=== PATIENT | female | born 1995 | race African-American/Black ===

== ENCOUNTER 2016-11-13 20:30 | Emergency (ER) | payer OTHER ==
[2016-11-13 20:38] VITALS: BP 125/60; PULSE 79; BMI 25.2
[2016-11-13 21:05] LABS: BASOPHIL 0.9 % (0-2.0); MCH 25.1 pg (25.7-33.7); MCHC 32.4 g/dl (32.0-36.0); MEAN CELL VOLUME 77.5 fl (80-96); NEUTROPHILS 63.6 % (42.8-82.8); RDW 15.5 % (11.6-15.6); WHITE BLOOD COUNT 7.8 K/mm3 (4.0-10.0)
--- NOTE | 2016-11-13 21:34 | PDOC ---
History of Present Illness - History of Present Illness Initial Comments: 11/13/16 23:05 The patient is a 21 year old female, 8 weeks , with no significant past medical history, who presents to the emergency department with vaginal bleeding and abdominal cramping today. The patient states she was feeling fine yesterday , until she woke up with sharp, intermittent, suprapubic cramping with vaginal bleeding this morning. She denies chest pain, shortness of breath, headache and dizziness. She denies fever, chills, nausea, vomit, diarrhea and constipation. She denies dysuria, frequency, urgency and hematuria. Allergies: NKDA Social history: denies toxic habits PCP: Dr. Fu <Gabrielle Duong - Last Filed: 11/13/16 23:05> <Shell Cervantes - Last Filed: 11/14/16 00:04> - General Chief Complaint: Vaginal Bleeding Stated Complaint: 8WKS/VAGINAL BLEEDING Time Seen by Provider: 11/13/16 20:36 Past History <Gabrielle Duong - Last Filed: 11/13/16 23:05> - Past Medical History Suicide Attempt (Hx): No - Psycho/Social/Smoking Cessation Hx Anxiety: No Suicidal Ideation: No Smoking History: Never smoked Have you smoked in the past 12 months: Yes Information on smoking cessation initiated: No Hx Alcohol Use: No Drug/Substance Use Hx: No Substance Use Type: None <Shell Cervantes - Last Filed: 11/14/16 00:04> - Past Medical History Allergies/Adverse Reactions: Allergies Allergy/AdvReac Type Severity Reaction Status Date / Time No Known Allergies Allergy Verified 11/13/16 20:36 Home Medications: Ambulatory Orders Naproxen [Naprosyn -] 500 mg PO BID #14 tablet 05/26/16 Review of Systems - Review of Systems Able to Perform ROS?: Yes Comments:: 11/13/16 23:08 CONSTITUTIONAL: Absent: fever, chills, diaphoresis, generalized weakness, malaise, loss of appetite HEENT: Absent: rhinorrhea, nasal congestion, throat pain, throat swelling, difficulty swallowing, mouth swelling, ear pain, eye pain, visual Changes CARDIOVASCULAR: Absent: chest pain, syncope, palpitations, irregular heart rate, lightheadedness , peripheral edema RESPIRATORY: Absent: cough, shortness of breath, dyspnea with exertion, orthopnea, wheezing, stridor, hemoptysis GASTROINTESTINAL: (+) abdominal cramping. Absent:abdominal distension, nausea, vomiting, diarrhea , constipation, melena, hematochezia GENITOURINARY: (+) vaginal bleeding in . Absent: dysuria, frequency, urgency, hesitancy, hematuria, flank pain, genital pain MUSCULOSKELETAL: Absent: myalgia, arthralgia, joint swelling SKIN: Absent: rash, itching, pallor HEMATOLOGIC/IMMUNOLOGIC: Absent: easy bleeding, easy bruising, lymphadenopathy, frequent infections ENDOCRINE: Absent: unexplained weight gain, unexplained weight loss, heat intolerance, cold intolerance NEUROLOGIC: Absent: headache, focal weakness or paresthesias, dizziness, unsteady gait, seizure, mental status changes, bladder or bowel incontinence PSYCHIATRIC: Absent: anxiety, depression, suicidal or homicidal ideation, hallucinations. <Gabrielle Duong - Last Filed: 11/13/16 23:05> *Physical Exam - Vital Signs Last Vital Signs Temp Pulse Resp BP Pulse Ox 79 18 125/60 98 11/13/16 20:36 11/13/16 20:36 11/13/16 20:36 11/13/16 20:36 - Physical Exam Comments: 11/13/16 23:09 GENERAL: Well developed, well nourished. Awake and alert. No acute distress. HEENT: Normocephalic, atraumatic. PERRLA, EOMI. No conjunctival pallor. Sclera are non- icteric. Moist mucous membranes. Oropharynx is clear. NECK: Supple. Full ROM. No JVD. Carotid pulses 2+ and symmetric, without bruits. No thyromegaly. No lymphadenopathy. CARDIOVASCULAR: Regular rate and rhythm. No murmurs, rubs, or gallops. Distal pulses are 2+ and symmetric. PULMONARY: No evidence of respiratory distress. Lungs clear to auscultation bilaterally. No wheezing, rales or rhonchi. ABDOMINAL: Soft. Non-tender. Non-distended. No rebound or guarding. No organomegaly. Normoactive bowel sounds. MUSCULOSKELETAL Normal range of motion at all joints. No bony deformities or tenderness. No CVA tenderness. EXTREMITIES: No cyanosis. No clubbing. No edema. No calf tenderness. SKIN: Warm and dry. Normal capillary refill. No rashes. No jaundice. NEUROLOGICAL: Alert, awake, appropriate. Cranial nerves 2-12 intact. Normoreflexic in the upper and lower extremities. Normal speech. Toes are down-going bilaterally. Gait is normal without ataxia. PSYCHIATRIC: Cooperative. Good eye contact. Appropriate mood and affect. <Gabrielle Duong - Last Filed: 11/13/16 23:05> - Vital Signs Last Vital Signs Temp Pulse Resp BP Pulse Ox 79 18 125/60 98 11/13/16 20:36 11/13/16 20:36 11/13/16 20:36 11/13/16 20:36 <Shell Cervantes - Last Filed: 11/14/16 00:04> ED Treatment Course - LABORATORY CBC & Chemistry Diagram: 11/13/16 20:55 - ADDITIONAL ORDERS Additional order review: Laboratory Results 11/13/16 20:55 Beta HCG, Quant [id number] 11/13/16 20:55 RBC 4.75 MCV 77.5 L MCHC 32.4 RDW 15.5 MPV 10.0 Neutrophils % 63.6 D Lymphocytes % 23.2 D Monocytes % 10.3 H Eosinophils % 2.0 D Basophils % 0.9 <Gabrielle Duong - Last Filed: 11/13/16 23:05> - LABORATORY CBC & Chemistry Diagram: 11/13/16 20:55 - ADDITIONAL ORDERS Additional order review: 11/13/16 20:55 RBC 4.75 MCV 77.5 L MCHC 32.4 RDW 15.5 Neutrophils % 63.6 D Lymphocytes % 23.2 D Monocytes % 10.3 H Eosinophils % 2.0 D Basophils % 0.9 <Shell Cervantes - Last Filed: 11/14/16 00:04> Medical Decision Making - Medical Decision Making 11/13/16 22:29 21 yo female with no significant PMH p/w vag bleeding and pelvic cramping.states she is about 8 weeks -she has had care w Dr Epperson [facility]>200,000 transvag US shows SL IUP 9 weeks 1 day [id number] imp threatened AB plan follow up w her senior radiation therapist this week <Shell Cervantes - Last Filed: 11/14/16 00:04> *DC/Admit/Observation/Transfer - Attestations Scribe Attestion: 11/13/16 23:10 Documentation prepared by Gabrielle Duong, acting as medical recruiter for Shell Cervantes MD <Gabrielle Duong - Last Filed: 11/13/16 23:05> <Shell Cervantes - Last Filed: 11/14/16 00:04> Diagnosis at time of Disposition: Threatened - Discharge Dispostion Disposition: HOME Condition at time of disposition: Stable - Referrals Referrals: Kang Acevedo MD [Primary Care Provider] - Mildred Hobbs MD [Staff Physician] - - Patient Instructions Printed Discharge Instructions: DI for Threatened Additional Instructions: PLEASE FOLLOW UP WITH YOUR POST ANESTHESIA ROOM NURSE SOON POSSIBLE
[2016-11-13 23:03] LABS: PLATELET COMMENT2 FEW LARGE PLTS; PLATELET COUNT 160 K/MM3 (134-434); PLATELET ESTIMATE ADEQUATE (NORMAL)
== END 2016-11-13 23:50 | disposition home or self-care (01) ==
LOC: JER 20:30
DX: O20.0 Threatened abortion (principal); Z3A.09 9 weeks gestation of pregnancy
CPT/HCPCS: 36415; 76801-TC; 84702; 85025; 86850; 86900; 86901; 99281-25

== ENCOUNTER 2017-01-25 12:49 | Emergency (ER) | payer OTHER ==
[2017-01-25 12:52] VITALS: BMI 27.4
--- NOTE | 2017-01-25 13:04 | PDOC ---
Attending Attestation - Resident Resident Name: JeffBam - ED Attending Attestation I have performed the following: I have examined & evaluated the patient, The case was reviewed & discussed with the resident, I agree w/resident's findings & plan, Exceptions are as noted - HPI HPI: 01/25/17 13:03 The patient is a 21-year-old female, 20 weeks , with no significant past medical history, who presents to the emergency department complaining of bilateral lower thoracic, upper lumbar, lateral back pain. The back pain is a mild to moderate dull ache. It is worsened by change of position. It does not radiate. It started gradually. She denies abdominal pain, vaginal bleeding, vaginal discharge. She denies fever, chills, sweats. She denies urinary symptoms. She denies lower extremity weakness or paresthesias. She denies bladder or bowel incontinence or retention. She denies trauma. She denies rash. 01/25/17 13:29 - Physicial Exam PE: 01/25/17 13:04 She is well-appearing Vitals noted - Medical Decision Making 01/25/17 15:10 The patient is well-appearing and in no acute distress Her pain seems musculoskeletal She does have evidence of possible UTI I do not feel that she has pyelonephritis Will treat musculoskeletal back pain with Tylenol We'll treat for UTI with 3 days of Keflex She will follow up closely with OB She understands that it is very important for her to return to the emergency department if she develops any new symptoms, especially fever, or if her symptoms worsen or persist Discharge Disposition - Diagnosis Back pain Urinary tract infection Qualifiers: Urinary tract infection type: site unspecified Hematuria presence: without hematuria Qualified Code(s): N39.0 - Urinary tract infection, site not specified - Discharge Dispostion Disposition: HOME - Prescriptions Prescriptions: Cephalexin [Keflex] 500 mg PO BID #7 capsule - Referrals Referrals: Kang Acevedo MD [Primary Care Provider] - - Patient Instructions Printed Discharge Instructions: DI for Urinary Tract Infection (UTI), DI for Low Back Pain Additional Instructions: You have a UTI infection. Take antibiotics as directed. Follow up with OBGYN in in 3-5 days. Plenty of fluid. Regular diet. Increase activity as tolerated. If you develop worsening pain or fever/chills please return to ER. You MUST call and follow up with your doctor tomorrow. Please make sure your doctor reviews the results of your emergency department evaluation. - Post Discharge Activity
--- NOTE | 2017-01-25 13:32 | PDOC ---
History of Present Illness - General Chief Complaint: Back Pain Stated Complaint: BACK PAIN (19 WKS ) Time Seen by Provider: 01/25/17 12:59 History Source: Patient Exam Limitations: No Limitations - History of Present Illness Initial Comments: 01/25/17 13:27 21 yo F with no signifciant PMHx @ 20 gestation presents with one day history of back pain. She describes 9/10 constant stabbing back pain located on her right flank that radiates to he epigastrum. Pain is aggravated by lying flat. No alleviating factors. Denies any urinary symptoms. Accompanied by tension-type headache. Denies CP, SOB, fever, chills, N/V.Denies vaginal bleeding or discharge. Last seen by obgyn on 01/15/17 and was told no issue with . Past History - Past Medical History Allergies/Adverse Reactions: Allergies Allergy/AdvReac Type Severity Reaction Status Date / Time No Known Allergies Allergy Verified 01/25/17 12:52 Home Medications: Ambulatory Orders Cephalexin [Keflex] 500 mg PO BID #7 capsule 01/25/17 Vit/Iron Fumarate/FA [ Tablet] 1 each PO DAILY 01/25/17 Suicide Attempt (Hx): No Other medical history: denies - Psycho/Social/Smoking Cessation Hx Anxiety: No Suicidal Ideation: No Smoking History: Never smoked Have you smoked in the past 12 months: Yes Hx Alcohol Use: No Drug/Substance Use Hx: No Substance Use Type: None Review of Systems - Review of Systems Able to Perform ROS?: Yes Is the patient limited Turkmen proficient: No : Yes: Flank Pain, Pain. No: Hematuria All Other Systems: Reviewed and Negative *Physical Exam - Vital Signs Last Vital Signs Temp Pulse Resp BP Pulse Ox 98 F 108 H 19 137/70 100 01/25/17 12:50 01/25/17 12:50 01/25/17 12:50 01/25/17 12:50 01/25/17 12:50 - Physical Exam General Appearance: Yes: Mild Distress HEENT: positive: EOMI, STARLA Neck: positive: Supple Respiratory/Chest: positive: Lungs Clear, Normal Breath Sounds. negative: Respiratory Distress, Accessory Muscle Use Cardiovascular: positive: Regular Rhythm, S1, S2, Tachycardia. negative: Edema , JVD, Murmur Vascular Pulses: Dorsalis-Pedis (R): 2+, Doralis-Pedis (L): 2+ Gastrointestinal/Abdominal: positive: Normal Bowel Sounds, Other (gravid uterus to level of umbilicus) Musculoskeletal: positive: Normal Inspection, CVA Tenderness (bilateral >R) Integumentary: positive: Normal Color, Dry, Warm. negative: Cyanotic, Erythema , Jaundice Neurologic: positive: voltage inspector II-XII NML intact, Fully Oriented, Alert, Normal Mood/ Affect, Motor Strength 01/26 ED Treatment Course - LABORATORY CBC & Chemistry Diagram: 01/25/17 13:50 01/25/17 13:50 Medical Decision Making - Medical Decision Making 01/25/17 13:33 A:21 yo F with no signifciant PMHx @ 20 gestation presents with one day history of back pain. Will r/o infectious process or possible miscarriage. P: * CBC, CMP, UA, quanitiative BhCG,PT/INR and lipase. * Transabdominal US 01/25/17 15:13 * Urine is positive for urinary tract infection * No clinical or lab signs of pyelonephritis. *DC/Admit/Observation/Transfer Diagnosis at time of Disposition: Urinary tract infection Qualifiers: Urinary tract infection type: site unspecified Hematuria presence: without hematuria Qualified Code(s): N39.0 - Urinary tract infection, site not specified - Discharge Dispostion Disposition: HOME Admit: No - Patient Instructions Printed Discharge Instructions: DI for Urinary Tract Infection (UTI) Additional Instructions: You have a UTI infection. Take antibiotics as directed. Follow up with OBGYN in in 3-5 days. Plenty of fluid. Regular diet. Increase activity as tolerated. If you develop worsening pain or fever/chills please return to ER.
[2017-01-25 14:05] LABS: BASOPHIL 0.4 % (0-2.0); EOSINOPHIL 0.6 % (0-4.5); MCH 24.7 pg (25.7-33.7); MCHC 32.3 g/dl (32.0-36.0); MEAN CELL VOLUME 76.2 fl (80-96); MEAN PLT VOLUME 9.8 fl (7.5-11.1); NEUTROPHILS 81.5 % (42.8-82.8); PLATELET COUNT 124 K/MM3 (134-434); RDW 15.5 % (11.6-15.6)
[2017-01-25 14:07] LABS: URINE APPEARANCE SLCLOUDY; URINE BILIRUBIN NEGATIVE (NEGATIVE); URINE BLOOD NEGATIVE (NEGATIVE); URINE COLOR YELLOW; URINE GLUCOSE (UA) NEGATIVE (NEGATIVE); URINE KETONE NEGATIVE (NEGATIVE); URINE NITRITE POSITIVE (NEGATIVE); URINE PROTEIN NEGATIVE (NEGATIVE); URINE UROBILINOGEN NEGATIVE E.U./dl (0.2-1.0)
[2017-01-25] MEDS ORDERED: ACETAMINOPHEN 1000 MG/100 ML VIAL (NON FORMULARY) IVPB ONE (14:18)
[2017-01-25 14:24] LABS: URINE LEUK ESTERASE TRACE (NEGATIVE)
[2017-01-25] MEDS ORDERED: ACETAMINOPHEN 325 MG TABLET (FP) PO ONE (14:24)
[2017-01-25] MEDS ORDERED: ACETAMINOPHEN 325 MG TABLET (FP) ONE (14:26)
[2017-01-25 14:27] LABS: INR 1.04 (0.82-1.09); PROTHROMBIN TIME (PATIENT) 11.4 SEC (9.98-11.88)
[2017-01-25 14:34] LABS: ANION GAP 10 (8-16); BILIRUBIN,TOTAL 0.3 mg/dL (0.2-1.0); CO2 25 mmol/L (21-32); COCKROFT - GAULT 218.4755; CREATININE 0.5 mg/dL (0.55-1.02); GLUCOSE,RANDOM 62 mg/dL (74-106); SGOT/AST 70 U/L (15-37); SGPT/ALT 94 U/L (12-78); TOT PROT 6.9 g/dl (6.4-8.2)
[2017-01-25] MEDS ORDERED: ACETAMINOPHEN 650 MG/20.3 ML ORAL SOLUTION (CUPS) ONE (14:34)
[2017-01-25 14:47] LABS: URINE BACTERIA FEW /hpf (NONE SEEN); URINE MUCUS RARE; URINE RBC 1 /hpf (0-3); URINE WBC 14 /hpf (3-5)
[2017-01-25 14:50] LABS: ALK PHOS 82 U/L (45-117)
[2017-01-25 16:04] VITALS: BP 135/75; PULSE 99; TEMP 98.3
== END 2017-01-25 15:40 | disposition home or self-care (01) ==
LOC: JER 12:49
PROC: 3E033NZ Introduction of Analgesics, Hypnotics, Sedatives into Peripheral Vein, Percutaneous Approach (ICD-10-PCS; principal; 2017-01-25)
DX: O23.32 Infections of other parts of urinary tract in pregnancy, second trimester (principal); Z3A.20 20 weeks gestation of pregnancy
CPT/HCPCS: 36415; 76815-TC; 80053; 81003; 81015; 83690; 84702; 85025; 85610; 86850; 86900; 86901; 99282-25

== ENCOUNTER 2017-06-20 19:50 | Inpatient (IN) | payer OTHER ==
[2017-06-20] MEDS ORDERED: DEXTROSE 5%-LACTATED RINGERS 1,000 ML IV ONE (20:00)
[2017-06-20 21:09] VITALS: BMI 35.9
[2017-06-20] MEDS ORDERED: DINOPROSTONE 10 MG VAGINAL SUPPOSITORY VG ONE (21:45)
--- NOTE | 2017-06-20 22:52 | HP ---
Past Medical History - Admission History of Present Illness: 22 yo @ 40 0/7 wks by first trimester ultrasound, EDC 06/20/2017 complicated by: 1. Polyhydramnios - initially noted at 24 wk ultrasound Recent ultrasound on 05/30/2017, TRESA 22.9cm, EFW 3229g (66%), BPP 8/8 2. 70 lb weight gain this Patient presents for scheduled induction of labor. She reports movement, denies leakage of fluid or vaginal bleeding. History Source: Patient Limitations to Obtaining History: No Limitations - Past Medical History Cardiovascular: No: HTN Pulmonary: No: Asthma Gastrointestinal: No: GERD ...: 1 ...Para: 0 ...Term: 0 ...: 0 ...Spon : 0 ...Induced : 0 ...Multiple Gestation: 0 ...LMP: 09/16/16 ... Weeks Gestation by Dates: 39.4 ...EDC by Dates: 06/23/17 ...EDC by Sono: 06/20/17 Heme/Onc: No: Anemia - Past Surgical History Hx Myomectomy: No Hx Transabdominal Cerclage: No Additional Surgical History: corrective surgery for webbed hands/feet - Smoking History Smoking history: Never smoked Have you smoked in the past 12 months: No - Alcohol/Substance Use Hx Alcohol Use: No History of Substance Use: reports: None - Social History History of Recent Travel: No Home Medications - Allergies Allergies/Adverse Reactions: Allergies Allergy/AdvReac Type Severity Reaction Status Date / Time No Known Allergies Allergy Verified 06/20/17 19:57 - Home Medications Home Medications: Ambulatory Orders Vit/Iron Fumarate/FA [ Tablet] 1 each PO DAILY 01/25/17 Family Disease History - Family Disease History Family History: Denies Review of Systems - Review of Systems Constitutional: reports: No Symptoms Neck: reports: No Symptoms Cardiovascular: reports: No Symptoms Respiratory: reports: No Symptoms Gastrointestinal: reports: No Symptoms Genitourinary: reports: No Symptoms Breasts: reports: No Symptoms Reported Neurological: reports: No Symptoms Endocrine: reports: No Symptoms Hematology/Lymphatic: reports: No Symptoms Psychiatric: reports: No Symptoms Physical Exam - Maternity Vital Signs: Vital Signs Temperature 98.7 F 06/20/17 22:00 Pulse Rate 91 H 06/20/17 22:00 Respiratory Rate 20 06/20/17 22:00 Blood Pressure 146/68 06/20/17 22:00 O2 Sat by Pulse Oximetry (%) Constitutional: Yes: Well Nourished, No Distress, Calm Neck: Yes: Supple Cardiovascular: Yes: Regular Rate and Rhythm Lungs: Clear to auscultation - Abdominal Exam/OB Number of Fetuses: Single Presentation: Vertex Contractions: Yes Regularity: Irregular Intensity: Unaware Heart Rate (range): 150 Heart Rate Location: Midline Category: I Accelerations: Non-Uniform Decelerations: None - Vaginal Exam/OB Vaginal Bleediing: No Dilatation (cm): 0 Effacement (%): 0 Amniotic Membrane Status: Intact Station: -4 - Physical Exam Edema: No Psychiatric: Yes: Alert, Oriented - Labs Lab Results: PNL - B positive; antibody negative; HBs Ag negative; RPR NR, Rubella Immune, HIV negative, GBS positive Hemorrhage Risk Assessment - Risk Factors Medium Risk Factors: Yes: None High Risk Factors: Yes: None Risk Score: 1 Risk Level: Medium Risk Assessment/Plan 22 yo @ 40 0/7 wks induction of labor 1. Consents reviewed and signed Reviewed risks including uterine tachysystole, heart rate abnormalities, need for emergent delivery and associated surgical risks, risk of induction of labor failure needing delivery. She expressed understanding. 2. GBS positive, plan for ampicillin in active labor 3. Will offer pain control upon patient's request 4. Will continue to monitor
[2017-06-21] MEDS: DEXTROSE 5%-LACTATED RINGERS 1,000 ML IV SCH ×2 (03:45→14:45)
[2017-06-21] MEDS ORDERED: OXYTOCIN 15 UNITS/ LR 250 ML 250 ML IVPB SCH (16:15)
[2017-06-22] MEDS ORDERED: AMPICILLIN - 2 GM in SODIUM CHLORIDE 100 ML IVPB ONE
[2017-06-22] MEDS ORDERED: OXYTOCIN 15 UNITS/ LR 250 ML 250 ML IVPB SCH (01:15)
[2017-06-22] MEDS: DEXTROSE 5%-LACTATED RINGERS 1,000 ML IV SCH ×2 (03:30→14:33)
[2017-06-22] MEDS: AMPICILLIN - 1 GM in SODIUM CHLORIDE 100 ML IVPB SCH ×4 (04:02→16:06)
[2017-06-22] MEDS ORDERED: ELECTROLYTE-148 SOLN 500 ML IV ONE ×2 (06:45→07:15)
[2017-06-22] MEDS ORDERED: CITRIC ACID/SODIUM CITRATE 30 ML UNIT-DOSE CUP PO ONE (06:45)
--- NOTE | 2017-06-22 09:28 | PN ---
Progress Note, Physician Chief Complaint: 22 yo P0 @ 40.2 wks Currently had been induced for post term , LGA infant and Polyhydramnious She did not make any cervical change and now had SROM with thick meconium patient is counselled to proceed with Primary c/section History of Present Illness: 1. Family history of Multiple and fused digits 2. LGA, 75lb weight gain this 3. Polyhydramnious - normal genetic screening 4. Thick meconium, FHR reasuring - Current Medication List Current Medications: Active Medications Dextrose/Lactated Ringer's (D5-Lr -) 1,000 mls @ 125 mls/hr IV ASDIR LILLY Last Admin: 06/22/17 03:30 Dose: 125 mls/hr Ampicillin Sodium 1 gm/ Sodium (Chloride) 100 mls @ 200 mls/hr IVPB Q4H [facility] Stop: 06/23/17 03:59 Last Admin: 06/22/17 08:18 Dose: 200 mls/hr Parenteral Electrolytes (Plasma-Lyte 148 -) 500 mls @ 125 mls/hr IV ONCE ONE Stop: 06/22/17 11:14 - Objective Vital Signs: Vital Signs Temperature 98.7 F 06/22/17 06:00 Pulse Rate 95 H 06/22/17 06:00 Respiratory Rate 20 06/22/17 06:00 Blood Pressure 137/82 06/22/17 06:00 O2 Sat by Pulse Oximetry (%) Constitutional: Yes: Well Nourished Eyes: Yes: WNL HENT: Yes: Normocephalic Neck: Yes: WNL Cardiovascular: Yes: WNL Respiratory: Yes: WNL, CTA Bilaterally Gastrointestinal: Yes: WNL, Normal Bowel Sounds Genitourinary: Yes: Other (FHR 140's Modarate variability, + accels, no Decels [place] Irregular ctxs) Breast(s): Yes: WNL Musculoskeletal: Yes: WNL Extremities: Yes: WNL Edema: No Integumentary: Yes: WNL Neurological: Yes: WNL, Alert, Oriented ...Motor Strength: WNL Psychiatric: Yes: WNL Assessment/Plan 22yo P0 @ 40.2 wks failed IOL, SROM, thick meconium, LGA Patient did not progress her cervical dilation past 1cm head is not engaged Offered Primary c/section Risk of infection, bleeding, injury to internal organs and difficulty with subsequent pregnancies explained to the patient She understands, consent signed Anemia - Hct 24 - 2Units sales person to OR
[2017-06-22] MEDS ORDERED: IBUPROFEN 600 MG TABLET (FP) PO PRN ×2 (09:50→11:12)
[2017-06-22] MEDS ORDERED: ONDANSETRON 4 MG/2 ML VIAL IVPB PRN (09:50)
[2017-06-22] MEDS ORDERED: ACETAMINOPHEN 325 MG TABLET (FP) PO PRN (09:50)
[2017-06-22 10:13] LABS: BASOPHIL 0.6 % (0-2.0); EOSINOPHIL 1.3 % (0-4.5); MCHC 30.4 g/dl (32.0-36.0); MEAN CELL VOLUME 61.4 fl (80-96); NEUTROPHILS 71.4 % (42.8-82.8); PLATELET COUNT 161 K/MM3 (134-434); RDW 20.5 % (11.6-15.6); WHITE BLOOD COUNT 9.5 K/mm3 (4.0-10.0)
[2017-06-22 10:16] LABS: MCH 18.7 pg (25.7-33.7)
[2017-06-22 10:35] LABS: ARTERIAL BLOOD GAS BASE EXCESS -0.2 meq/l (-2-2); ARTERIAL BLOOD GAS HCO3 27.6 meq/L (22-26); ARTERIAL BLOOD GAS PO2 10.6 mmHg (80-100)
[2017-06-22 10:38] LABS: ARTERIAL BLD GAS O2 SATURATION 32.1 % (90-98.9); ARTERIAL BLOOD GAS BASE EXCESS -0.3 meq/l (-2-2); ARTERIAL BLOOD GAS HCO3 26.1 meq/L (22-26); ARTERIAL BLOOD GAS PO2 19.9 mmHg (80-100)
[2017-06-22 10:42] LABS: ARTERIAL BLOOD GAS pH 7.29 (7.35-7.45)
[2017-06-22 10:43] LABS: ARTERIAL BLOOD GAS pH 7.33 (7.35-7.45)
--- NOTE | 2017-06-22 10:55 | OP ---
Operative Note - Note: Operative Date: 06/22/17 Pre-Operative Diagnosis: 22yo P0 @ 40.2 wks failed induction, LGA, Polyhydramnious, Thick meconium. SROM upon call to OR Operation: Primary c/section Findings: Female in ROT presentation, Thick meconium Normal tubes and ovaries Post-Operative Diagnosis: Same as Pre-op ( macrosomia) Surgeon: Mildred Hobbs Casino Floor Supervisor: Colby Crabtree Anesthesiologist/ENGINE HOUSE HELPER: Jaziel Donohue Anesthesia: Spinal Specimens Removed: Female . Full term placenta Estimated Blood Loss (mls): 600 Drains, Volume Out (mls): 300 Blood Volume Replaced (mls): 125 Fluid Volume Replaced (mls): 1,200 Operative Report Dictated: Yes
--- NOTE | 2017-06-22 11:03 | PN ---
Delivery - Delivery Section: Primary Type of Anesthesia: Spinal EBL (cc): 600 Delivery, Single - Stages of Labor Date 1st Stage Initiatied: 06/22/17 Time 1st Stage Initiated: 04:00 Date of Delivery: 06/22/17 Time of Delivery: 09:54 Date Placenta Delivered: 06/22/17 Time Placenta Delivered: :55 Placenta: Yes: Expressed - Condition of Infant Bookkeeping Machine Mechanic/Grain Combiner Present: Yes Name: Tremayne Bledsoe Gender: Female Weight: 9 lb 8 oz Position: Right, OT - 1 Minute Total Score: 9 5 Minutes Total Score: 9 - Feeding Plan Initial Plan: Elected not to breastfeed exclusively throughout hospitalization Benefits of Exclusively reinforced: Yes Remarks - Remarks Remarks: Uncomplicated c/s All layers closed
[2017-06-22 11:09] LABS: ALBUMIN 2.4 g/dl (3.4-5.0); ANION GAP 10 (8-16); CO2 23 mmol/L (21-32); CREATININE 0.5 mg/dL (0.55-1.02); GLUCOSE,RANDOM 74 mg/dL (74-106); SGOT/AST 16 U/L (15-37); SGPT/ALT 11 U/L (12-78)
[2017-06-22 11:12] LABS: ALK PHOS 140 U/L (45-117); BILIRUBIN,TOTAL 0.6 mg/dL (0.2-1.0); TOT PROT 6.5 g/dl (6.4-8.2)
[2017-06-22] MEDS ORDERED: diphenhydrAMINE HCL 25 MG CAPSULE (FP) PO PRN (11:12)
[2017-06-22] MEDS ORDERED: oxyCODONE HCL 5 MG TABLET PO PRN ×2 (11:12)
[2017-06-22] MEDS ORDERED: METHYLERGONOVINE MALEATE 0.2 MG/1 ML AMP IM PRN (11:12)
[2017-06-22] MEDS ORDERED: BENZOCAINE 20% 57 GM BOTTLE TP PRN (11:12)
[2017-06-22] MEDS ORDERED: WITCH HAZEL 50% (TUCKS) 40 PAD/JAR PAD TP PRN (11:12)
[2017-06-22] MEDS ORDERED: BENZOCAINE 28 GM HEMORRHOIDAL OINTMENT PR PRN (11:12)
[2017-06-22] MEDS ORDERED: OXYTOCIN 20 UNITS in 0.9% NS 1,000 ML IV SCH (11:15)
[2017-06-22 12:12] LABS: ANISOCYTOSIS 1+; HYPOCHROMIA 3+; MICROCYTOSIS 2+; POLYCHROMASIA 1+
[2017-06-22 12:13] LABS: OVALOCYTE 1+; TEAR DROP CELLS 1+
[2017-06-22] MEDS: IBUPROFEN 800 MG/8 ML IJ IVPB PRN ×2 (12:30→21:57)
[2017-06-22] MEDS ORDERED: DEXTROSE 5%-WATER - 50 ML IVPB ONE (17:12)
[2017-06-22] MEDS ORDERED: ceFAZolin SODIUM 1 GM VIAL ONE (17:12)
[2017-06-22] MEDS: CEFAZOLIN 1 GM in DEXTROSE 5%-WATER - 50 ML IVPB SCH (17:50)
[2017-06-23] MEDS ORDERED: DEXTROSE 5%-WATER - 50 ML IVPB ONE (01:22)
[2017-06-23] MEDS ORDERED: ceFAZolin SODIUM 1 GM VIAL ONE (01:22)
[2017-06-23] MEDS: CEFAZOLIN 1 GM in DEXTROSE 5%-WATER - 50 ML IVPB SCH (01:38)
[2017-06-23] MEDS: SIMETHICONE 80 MG TAB.CHEW (FP) PO PRN ×2 (07:35→21:22)
[2017-06-23] MEDS ORDERED: ACETAMINOPHEN 500 MG TABLET (FP) PO PRN (07:42)
[2017-06-23] MEDS ORDERED: IBUPROFEN 600 MG TABLET (FP) PO PRN (07:43)
[2017-06-23] MEDS: ACETAMINOPHEN 650 MG/20.3 ML ORAL SOLUTION (CUPS) PO PRN ×3 (09:04→21:21)
[2017-06-23] MEDS: IBUPROFEN 100 MG/5 ML UNIT DOSE CUPS PO PRN ×3 (09:06→21:21)
[2017-06-23 09:18] LABS: BASOPHIL 0.6 % (0-2.0); EOSINOPHIL 0.5 % (0-4.5); MCHC 30.5 g/dl (32.0-36.0); MEAN CELL VOLUME 61.5 fl (80-96); MEAN PLT VOLUME 8.4 fl (7.5-11.1); NEUTROPHILS 79.8 % (42.8-82.8); PLATELET COUNT 164 K/MM3 (134-434); RDW 22.1 % (11.6-15.6); WHITE BLOOD COUNT 14.8 K/mm3 (4.0-10.0)
[2017-06-23 09:26] LABS: MCH 18.8 pg (25.7-33.7)
--- NOTE | 2017-06-23 09:58 | PN ---
Progress Note, Physician Chief Complaint: Pt. ambulating and voiding, pain controlled, no anesthesia complaints. - Current Medication List Current Medications: Active Medications Acetaminophen (Tylenol -) 650 mg PO Q4H PRN PRN Reason: FEVER OR PAIN Acetaminophen (Tylenol Oral Solution -) 500 mg PO Q4H PRN PRN Reason: FEVER OR PAIN Last Admin: 06/23/17 09:04 Dose: 500 mg Benzocaine (Americaine Ointment -) 1 applic HI PRN PRN PRN Reason: PAIN Benzocaine (Americaine 20% Dandridge -) 1 spray TP PRN PRN PRN Reason: PAIN Bisacodyl (Dulcolax Suppository -) 10 mg HI PRN PRN PRN Reason: CONSTIPATION Diphenhydramine HCl (Benadryl Injection -) 25 mg IVPUSH Q4H PRN PRN Reason: Pruritis Last Admin: 06/22/17 23:37 Dose: 25 mg Diphenhydramine HCl (Benadryl -) 25 mg PO Q8H PRN PRN Reason: FOR ITCHING Dextrose/Lactated Ringer's (D5-Lr -) 1,000 mls @ 125 mls/hr IV ASDIR LILLY Last Admin: 06/22/17 14:33 Dose: Not Given Ibuprofen (Motrin Oral Suspension -) 600 mg PO Q4H PRN PRN Reason: PAIN Last Admin: 06/23/17 09:06 Dose: 600 mg Methylergonovine Maleate (Methergine Injection -) 0.2 mg IM Q4H PRN PRN Reason: EXCESSIVE BLEEDING Oxycodone HCl (Roxicodone -) 5 mg PO Q4H PRN PRN Reason: PAIN LEVEL 1-5 Stop: 06/23/17 11:11 Oxycodone HCl (Roxicodone -) 10 mg PO Q4H PRN PRN Reason: PAIN LEVEL 6-10 Stop: 06/26/17 23:59 Senna/Docusate Sodium (Pericolace -) 2 tablet PO HS PRN PRN Reason: CONSTIPATION Simethicone (Mylicon -) 80 mg PO Q4H PRN PRN Reason: GAS Last Admin: 06/23/17 07:35 Dose: 80 mg Witch Daniella/Glycerin (Tucks Pads -) 1 pad TP PRN PRN PRN Reason: PAIN - Objective Vital Signs: Vital Signs Temperature 98.7 F 06/23/17 06:00 Pulse Rate 81 06/23/17 06:00 Respiratory Rate 18 06/23/17 06:00 Blood Pressure 139/82 06/23/17 06:00 O2 Sat by Pulse Oximetry (%) 100 06/22/17 12:14 Constitutional: Yes: Well Nourished, No Distress, Calm Musculoskeletal: Yes: WNL Neurological: Yes: WNL, Alert, Oriented ...Motor Strength: WNL Labs: CBC, BMP 06/23/17 09:07 06/22/17 09:35 Assessment/Plan POD#1 s/p under spinal with duramorph. Doing well. D/C from anesthesia care.
[2017-06-23 10:33] LABS: ANISOCYTOSIS 2+; HYPOCHROMIA 2+; MICROCYTOSIS 2+
[2017-06-23] MEDS ORDERED: BISACODYL 10 MG SUPP.RECT PR PRN (11:12)
[2017-06-23] MEDS: DEXTROSE 5%-LACTATED RINGERS 1,000 ML IV SCH (13:30)
--- NOTE | 2017-06-23 14:36 | PN ---
Post Progress Note - Subjective Subjective: 22yo P1 s/p Primary c/s no complains, no flatus, voiding, ambulating, pain controlled Type of Delivery: Primary C/S Vital Signs: Vital Signs Temperature 98.4 F 06/23/17 14:00 Pulse Rate 84 06/23/17 14:00 Respiratory Rate 18 06/23/17 14:00 Blood Pressure 123/64 06/23/17 14:00 O2 Sat by Pulse Oximetry (%) 100 06/22/17 12:14 Breast Exam: Yes: Soft Uterus: Yes: Fundus Firm, Fundus @ umbilicus Abdomen/GI: Yes: Abdomen soft, Tolerating PO Lochia: Yes: Rubra Lochia, amount: Small Extremities: Yes: Calves non-tender Activity: Ambulating - Labs Labs: CBC WBC 14.8 K/mm3 (4.0-10.0) H D 06/23/17 09:07 RBC 4.30 M/mm3 (3.60-5.2) 06/23/17 09:07 Hgb 8.1 GM/dL (10.7-15.3) L 06/23/17 09:07 Hct 26.5 % (32.4-45.2) L 06/23/17 09:07 MCV 61.5 fl (80-96) L 06/23/17 09:07 MCH 18.8 pg (25.7-33.7) L 06/23/17 09:07 MCHC 30.5 g/dl (32.0-36.0) L 06/23/17 09:07 RDW 22.1 % (11.6-15.6) H 06/23/17 09:07 Plt Count 164 K/MM3 (134-434) 06/23/17 09:07 MPV 8.4 fl (7.5-11.1) 06/23/17 09:07 Neutrophils % 79.8 % (42.8-82.8) 06/23/17 09:07 Lymphocytes % 7.7 % (8-40) L D 06/23/17 09:07 Monocytes % 11.4 % (3.8-10.2) H 06/23/17 09:07 Eosinophils % 0.5 % (0-4.5) 06/23/17 09:07 Basophils % 0.6 % (0-2.0) 06/23/17 09:07 Hypochromia 2+ 06/23/17 09:07 Polychromasia 1+ 06/22/17 09:35 Anisocytosis 2+ 06/23/17 09:07 Microcytosis 2+ 06/23/17 09:07 Tear Drop Cells 1+ 06/22/17 09:35 Ovalocytes 1+ 06/22/17 09:35 Assessment/Plan 22yo P 1 s/p Primary c/s for failed IOL, LGA 1. Continue routine postoperative care. 2. ID - afebrile, will continue to monitor vital signs. 3. Cardiovascular - No acute issues 4. Pulmonary - Encourage incentive spirometer 5. Hematology - Hemoglobin / Hematocrit stable, s/p 1U PRBC 6. GI - no signs of illeus, encorage ambulation, Dulcolax suppository PRN 7. Rh positive no need for RhoGam
[2017-06-24] MEDS: IBUPROFEN 100 MG/5 ML UNIT DOSE CUPS PO PRN ×4 (02:41→21:36)
[2017-06-24] MEDS: SIMETHICONE 80 MG TAB.CHEW (FP) PO PRN ×3 (02:41→21:37)
[2017-06-24] MEDS: ACETAMINOPHEN 650 MG/20.3 ML ORAL SOLUTION (CUPS) PO PRN ×5 (02:41→21:36)
[2017-06-24] MEDS ORDERED: oxyCODONE HCL 5 MG TABLET ONE (07:36)
--- NOTE | 2017-06-24 08:16 | PN ---
Post Progress Note - Subjective Subjective: 22yo P1 s/p 1' c/s doing well, ambulates, voids, tolerates PO, + BM Post Day: 2 Type of Delivery: Primary C/S Vital Signs: Vital Signs Temperature 99.3 F 06/23/17 22:00 Pulse Rate 89 06/23/17 22:00 Respiratory Rate 18 06/23/17 22:00 Blood Pressure 138/66 06/23/17 22:00 O2 Sat by Pulse Oximetry (%) 100 06/22/17 12:14 Breast Exam: Yes: Soft Uterus: Yes: Fundus Firm, Fundus @ umbilicus Incision: Yes: Sutures intact Abdomen/GI: Yes: Abdomen soft Lochia: Yes: Rubra Lochia, amount: Small Extremities: Yes: Calves non-tender Activity: Ambulating - Labs Labs: CBC WBC 14.8 K/mm3 (4.0-10.0) H D 06/23/17 09:07 RBC 4.30 M/mm3 (3.60-5.2) 06/23/17 09:07 Hgb 8.1 GM/dL (10.7-15.3) L 06/23/17 09:07 Hct 26.5 % (32.4-45.2) L 06/23/17 09:07 MCV 61.5 fl (80-96) L 06/23/17 09:07 MCH 18.8 pg (25.7-33.7) L 06/23/17 09:07 MCHC 30.5 g/dl (32.0-36.0) L 06/23/17 09:07 RDW 22.1 % (11.6-15.6) H 06/23/17 09:07 Plt Count 164 K/MM3 (134-434) 06/23/17 09:07 MPV 8.4 fl (7.5-11.1) 06/23/17 09:07 Neutrophils % 79.8 % (42.8-82.8) 06/23/17 09:07 Lymphocytes % 7.7 % (8-40) L D 06/23/17 09:07 Monocytes % 11.4 % (3.8-10.2) H 06/23/17 09:07 Eosinophils % 0.5 % (0-4.5) 06/23/17 09:07 Basophils % 0.6 % (0-2.0) 06/23/17 09:07 Hypochromia 2+ 06/23/17 09:07 Polychromasia 1+ 06/22/17 09:35 Anisocytosis 2+ 06/23/17 09:07 Microcytosis 2+ 06/23/17 09:07 Tear Drop Cells 1+ 06/22/17 09:35 Ovalocytes 1+ 06/22/17 09:35 Assessment/Plan 22yo P 1 s/p Primary c/s for failed IOL, LGA 1. Continue routine postoperative care. 2. ID - afebrile, will continue to monitor vital signs. 3. Cardiovascular - No acute issues 4. Pulmonary - Encourage incentive spirometer 5. Hematology - Hemoglobin / Hematocrit stable, s/p 1U PRBC 6. GI - no signs of illeus, encorage ambulation, Dulcolax suppository PRN 7. Rh positive no need for RhoGam
[2017-06-24] MEDS: DEXTROSE 5%-LACTATED RINGERS 1,000 ML IV SCH (17:19)
--- NOTE | 2017-06-24 18:38 | OP ---
DATE OF OPERATION: 06/22/2017 PREOPERATIVE DIAGNOSIS: A 22-year-old, para 0, at 40 weeks 2 days, with failed induction, large for gestational age fetus, polyhydramnios, thick meconium, spontaneous rupture of membranes upon call to the operating room. POSTOPERATIVE DIAGNOSIS: A 22-year-old, para 0, at 40 weeks 2 days, with failed induction, large for gestational age fetus, polyhydramnios, thick meconium, spontaneous rupture of membranes upon call to the operating room. PROCEDURE: Primary section. SURGEON: Mildred Hobbs MD POWERHOUSE ENGINEER: Colby Crabtree MD ANESTHESIOLOGIST: Jaziel Donohue MD ANESTHESIA: Spinal. FINDINGS: A female infant, 9 pounds 8 ounces, in right occiput transverse presentation, thick meconium, normal tubes and ovaries bilaterally. DESCRIPTION OF OPERATIVE PROCEDURE: After ensuring informed consent, patient was brought to the operating room, where she was placed in dorsal supine position with left lateral tilt. Abdomen was prepped and draped in sterile fashion. A Pfannenstiel skin incision was made with a scalpel and carried down to the level of fascia with the scalpel. Fascia was dissected bilaterally with Bovie cautery, with good visualization of underlying tissue. Muscle was split in the midline and dissected superiorly and inferiorly. The peritoneum was tented and incised, with good visualization of the underlying bowel. The peritoneum was stretched and retracted with the low edge of the Brit. Vesicouterine peritoneum identified, tented with the pickups, and dissected bilaterally with Metzenbaum scissors, and retracted with the lower edge of the Brit. Uterine incision was made with a scalpel and extended bilaterally with bandage scissors. Infant's head was found to be unengaged out of the pelvis and was delivered atraumatically without any difficulty, as well as the rest of the 's body was delivered without any difficulty. The cord was clamped and cut and infant was handed to awaiting epic professional. The placenta was expressed, and uterus was cleared of clots and debris and, after assuring that the cervix is open with ring forceps, the uterine incision was reapproximated with running locking 2nd layer with 0 Biosyn. Two layers of suturing were accomplished on the uterus with 0 Biosyn. Bladder flap was reapproximated as well. Each gutter was cleared of clots and debris. Peritoneum was closed with 0 Biosyn. The muscle was reapproximated in the midline and fascia was subsequently closed with 0 Vicryl in running fashion. The subcuticular area was reapproximated with 2-0 chromic and skin was closed with 4-0 Biosyn. Pressure dressing applied. Instrument and sponge count was correct x2 at the end of the procedure. Estimated blood loss was 600 mL. Patient put out 300 mL of urine. She had 1200 mL of IV fluids and half a pack of red blood cells during the procedure. Patient tolerated procedure well and was brought to the recovery room in stable condition. Alfonso [id number]
[2017-06-24] MEDS ORDERED: SENNOSIDES/DOCUSATE COMBO (SENNA PLUS) TABLET (UD) PO PRN (22:00)
[2017-06-25] MEDS: IBUPROFEN 100 MG/5 ML UNIT DOSE CUPS PO PRN ×2 (03:15→08:53)
[2017-06-25] MEDS: ACETAMINOPHEN 650 MG/20.3 ML ORAL SOLUTION (CUPS) PO PRN ×2 (03:15→08:52)
[2017-06-25 07:16] LABS: BASOPHIL 1.1 % (0-2.0); EOSINOPHIL 3.6 % (0-4.5); MCHC 30.5 g/dl (32.0-36.0); MEAN PLT VOLUME 8.8 fl (7.5-11.1); NEUTROPHILS 71.5 % (42.8-82.8); PLATELET COUNT 219 K/MM3 (134-434); RDW 22.1 % (11.6-15.6); WHITE BLOOD COUNT 10.5 K/mm3 (4.0-10.0)
[2017-06-25 07:18] LABS: MCH 18.9 pg (25.7-33.7)
[2017-06-25] MEDS: SIMETHICONE 80 MG TAB.CHEW (FP) PO PRN (08:55)
--- NOTE | 2017-06-25 10:06 | DS ---
Physical Exam-CONDENSER TUBE TENDER Vital Signs: Vital Signs Temperature 98.9 F 06/24/17 22:00 Pulse Rate 94 H 06/24/17 22:00 Respiratory Rate 18 06/24/17 22:00 Blood Pressure 115/72 06/24/17 22:00 O2 Sat by Pulse Oximetry (%) 100 06/22/17 12:14 Constitutional: Yes: Well Nourished Eyes: Yes: WNL HENT: Yes: WNL Neck: Yes: WNL Cardiovascular: Yes: WNL, Regular Rate and Rhythm Respiratory: Yes: CTA Bilaterally Gastrointestinal: Yes: WNL, Normal Bowel Sounds, Soft ....Post : Yes: Uterus firm, Uterus non-tender Breast(s): Yes: WNL Musculoskeletal: Yes: WNL Extremities: Yes: WNL Edema: No Integumentary: Yes: WNL Wound/Incision: Yes: Clean/Dry, Sutures Intact Neurological: Yes: WNL, Alert, Oriented ...Motor Strength: WNL Psychiatric: Yes: WNL Labs: CBC, BMP 06/25/17 06:50 06/22/17 09:35 Delivery - Delivery Section: Primary Type of Anesthesia: Spinal Episiotomy/Laceration: None EBL (cc): 600 Delivery, Single - Stages of Labor Date 1st Stage Initiatied: 06/22/17 Time 1st Stage Initiated: 04:00 Date of Delivery: 06/22/17 Time of Delivery: 09:54 Time Placenta Delivered: 09:55 Placenta: Yes: Expressed - Condition of Infant Strawhat Inspector And Packer/Corrosion Control Fitter Present: Yes Name: Tremayne Bledsoe Gender: Female Weight: 9 lb 8 oz Position: Right, OT Total Hours ROM (Hrs/Mins): 0hrs/2mins - 1 Minute Total Score: 9 5 Minutes Total Score: 9 - Feeding Plan Initial Plan: Elected not to breastfeed exclusively throughout hospitalization Benefits of Exclusively reinforced: Yes Remarks - Remarks Remarks: Uncomplicated c/s All layers closed Discharge Summary Reason For Visit: INDUCTION OF LABOR Condition: Good - Instructions Diet, Activity, Other Instructions: Physical activity Resume your normal everyday activity as tolerated no heavy lifting or exercise until seen by your surgeon. You may walk unlimited del of and climb stairs. You may resume driving the car when you feel safe and comfortable behind the wheel. No sexual activity as instructed. Wound care If you have a bandage, leave it on, and keep dry for 48-72 hours. After that time discard the outer bandage. If they are tapes on the skin under the out of bandage leave them in place. They will peel off in the next 7 to 10 days. Do Not Peel them off. You may shower the day after surgery. If there are tapes present on the skin, you may shower over them. Diet There are no dietary restrictions. Eat healthy, high-fiber foods. Drink 6 to 8 glasses of liquid each day. This will assist in keeping your bowels are regular. Pain management You may take Tylenol or acetaminophen or Ibuprofen (for example, Motrin, Advil etc.) from my pain prescription medication is ordered should be taken as prescribed for moderate to severe pain. Call MD for any of the following: Severe pain not relieved by medication Fever of 101 or higher Excessive bleeding or drainage on dressing Inability to urinate Call Dr. Hobbs and make appt. to be seen on 06/29/17 Referrals: Mildred Hobbs MD [Staff Physician] - Disposition: HOME - Home Medications Comprehensive Discharge Medication List: Ambulatory Orders Vit/Iron Fumarate/FA [ Tablet] 1 each PO DAILY 01/25/17
[2017-06-25 10:13] VITALS: BP 133/83; PULSE 84; TEMP 99.6
--- NOTE | 2017-06-27 14:02 | PATH ---
Surgical Pathology Report Patient Name: RENEE WHYTE [facility]. Rec. 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 Specimen(s) Received PLACENTA Clinical History , 40.2 weeks, polyhydramnios Primary I-aqfyloz-jixwhi induction Final Diagnosis PLACENTA, DELIVERY: FOCALLY DISRUPTED THIRD TRIMESTER PLACENTA WITH THREE VESSEL UMBILICAL CORD AND MECONIUM HISTIOCYTOSIS OF PLACENTAL MEMBRANES. Electronically Signed Felix Lundberg M.D. Gross Description The specimen is received fresh labeled placenta and is a 950 gram, 20.0 x 19.5 x 5.5 cm. placenta with attached membranes and umbilical cord. The attached membranes are price green, meconium stained, translucent with focal opacities and insert marginally. The umbilical cord measures 22 cm. in length and averages 1.2 cm. in diameter. The cord inserts eccentrically, 2 cm. to the nearest margin. No true knots or strictures are identified. Cut surface of the umbilical cord reveals 3 vessels. The surface is yee green, meconium stained with moderate fibrin deposition and appropriate caliber vessels. The maternal surface is red-brown with focal defects. Sectioning reveals red-brown, spongy parenchyma. No lesions are identified. Veneer Taping Machine Offbearer sections are submitted in three cassettes as follows: 1- membrane rolls and umbilical cord; 2-3- full thickness sections of placenta. /06/26/2017 [facility]06/26/2017
== END 2017-06-25 12:40 | disposition home or self-care (01) | DRG 540 ==
LOC: JLDR 19:50 → J3W 06-22 13:17
PROVIDERS: ADMIT Obstetrics & Gynecology; ATTEND Obstetrics & Gynecology
PROC: 3E0P7VZ Introduction of Hormone into Female Reproductive, Via Natural or Artificial Opening (ICD-10-PCS; 2017-06-20)
PROC: 10D00Z1 Extraction of Products of Conception, Low, Open Approach (ICD-10-PCS; principal; 2017-06-22)
PROC: 30233N1 Transfusion of Nonautologous Red Blood Cells into Peripheral Vein, Percutaneous Approach (ICD-10-PCS; 2017-06-22)
DX: O61.0 Failed medical induction of labor (principal); O36.63X0 Maternal care for excessive fetal growth, third trimester, not applicable or unspecified; O40.3XX0 Polyhydramnios, third trimester, not applicable or unspecified; O99.02 Anemia complicating childbirth; Z3A.40 40 weeks gestation of pregnancy; O48.0 Post-term pregnancy; Z22.330 Carrier of Group B streptococcus; Z37.0 Single live birth
CPT/HCPCS: 36415; 36430; 36600; 80053; 82803; 85025; 86850; 86900; 86901; 88307-TC; P9038; P9058

== ENCOUNTER 2018-06-10 20:11 | Emergency (ER) | payer OTHER ==
--- NOTE | 2018-06-10 20:25 | PDOC ---
Rapid Medical Evaluation Chief Complaint: Cold Symptoms Time Seen by Provider: 06/10/18 20:22 Medical Evaluation: Allergies Allergy/AdvReac Type Severity Reaction Status Date / Time No Known Allergies Allergy Verified 06/20/17 19:57 06/10/18 20:22 This patient had a brief in-person evaluation by me The patient has a chief complaint of: vomiting today. Reports headache, epigastric pain and intermittent coughing. Denies diarrhea, fever or chills The pertinent physical findings are: NAD even and unlabored breathing soft, non tender The following orders have been placed: urine preg, urinalysis This patient will proceed to the ED for further evaluation. Discharge Disposition - Referrals Referrals: Kang Acevedo MD [Primary Care Provider] - - Patient Instructions - Post Discharge Activity
[2018-06-10 20:27] VITALS: BMI 28.9
[2018-06-10] MEDS ORDERED: ONDANSETRON 4 MG/2 ML VIAL IVPUSH ONE (20:54)
[2018-06-10] MEDS ORDERED: SODIUM CHLORIDE 1,000 ML IV STA (20:54)
[2018-06-10] MEDS ORDERED: FAMOTIDINE 20 MG/50 ML IVPB 20 MG/50 ML MG IVPB ONE ×2 (20:54→21:33)
--- NOTE | 2018-06-10 20:54 | PDOC ---
History of Present Illness - General Chief Complaint: Nausea/Vomiting Stated Complaint: COLD SYMPTOMS Time Seen by Provider: 06/10/18 20:22 Past History - Travel Traveled outside of the country in the last 30 days: No Close contact w/someone who was outside of country & ill: No - Past Medical History Allergies/Adverse Reactions: Allergies Allergy/AdvReac Type Severity Reaction Status Date / Time No Known Allergies Allergy Verified 06/20/17 19:57 Home Medications: Ambulatory Orders Guaifenesin [Robitussin] 10 ml PO Q8H #200 ml 06/11/18 Ibuprofen 800 mg PO TID #30 tablet 06/11/18 Ondansetron [Zofran Odt -] 4 mg SL TID #10 od.tablet 06/11/18 Asthma: No Cancer: No Cardiac Disorders: No COPD: No Diabetes: No HTN: No Seizures: No Thyroid Disease: No - Reproductive History (#): 1 - Suicide/Smoking/Psychosocial Hx Smoking History: Never smoked Have you smoked in the past 12 months: No Information on smoking cessation initiated: No Hx Alcohol Use: Yes (social) Drug/Substance Use Hx: No Substance Use Type: None Hx Substance Use Treatment: No Review of Systems - Review of Systems Able to Perform ROS?: Yes Comments:: 06/11/18 00:17 CONSTITUTIONAL: Absent: fever, chills, diaphoresis, generalized weakness, malaise, loss of appetite HEENT: Absent: rhinorrhea, nasal congestion, throat pain, throat swelling, difficulty swallowing, mouth swelling, ear pain, eye pain, visual Changes CARDIOVASCULAR: Absent: chest pain, loss of consciousness, palpitations, irregular heart rate, peripheral edema RESPIRATORY: Absent: cough, shortness of breath, dyspnea with exertion, orthopnea, wheezing, stridor, hemoptysis GASTROINTESTINAL: Absent: abdominal pain, abdominal distension, nausea, vomiting, diarrhea, constipation, melena, hematochezia GENITOURINARY: Absent: dysuria, frequency, urgency, hesitancy, hematuria, flank pain, genital pain MUSCULOSKELETAL: Absent: myalgia, arthralgia, joint swelling SKIN: Absent: rash, itching, pallor HEMATOLOGIC/IMMUNOLOGIC: Absent: easy bleeding, easy bruising, lymphadenopathy, frequent infections ENDOCRINE: Absent: unexplained weight gain, unexplained weight loss, heat intolerance, cold intolerance NEUROLOGIC: Absent: headache, focal weakness or paresthesias, dizziness, unsteady gait, seizure, mental status changes, bladder or bowel incontinence PSYCHIATRIC: Absent: anxiety, depression, suicidal or homicidal ideation, hallucinations. Is the patient limited Irish proficient: No *Physical Exam - Vital Signs Last Vital Signs Temp Pulse Resp BP Pulse Ox 76 18 120/76 100 06/10/18 20:22 06/10/18 20:22 06/10/18 20:22 06/10/18 20:22 - Physical Exam Comments: 06/11/18 00:17 GENERAL: Well developed, well nourished. Awake and alert. No acute distress. HEENT: Normocephalic, atraumatic. PERRLA, EOMI. No conjunctival pallor. Sclera are non- icteric. Moist mucous membranes. Oropharynx is clear. NECK: Supple. Full ROM. No JVD. Carotid pulses 2+ and symmetric, without bruits. No thyromegaly. No lymphadenopathy. CARDIOVASCULAR: Regular rate and rhythm. No murmurs, rubs, or gallops. Distal pulses are 2+ and symmetric. PULMONARY: No evidence of respiratory distress. Lungs clear to auscultation bilaterally. No wheezing, rales or rhonchi. ABDOMINAL: Soft. Non-tender. Non-distended. No rebound or guarding. No organomegaly. Normoactive bowel sounds. MUSCULOSKELETAL Normal range of motion at all joints. No bony deformities or tenderness. No CVA tenderness. EXTREMITIES: No cyanosis. No clubbing. No edema. No calf tenderness. SKIN: Warm and dry. Normal capillary refill. No rashes. No jaundice. NEUROLOGICAL: Alert, awake, appropriate. Cranial nerves 2-12 intact. No deficits to light touch and temperature in face, upper extremities and lower extremities. No motor deficits in the in face, upper extremities and lower extremities. Normoreflexic in the upper and lower extremities. Normal speech. Toes are down- going bilaterally. Gait is normal without ataxia. PSYCHIATRIC: Cooperative. Good eye contact. Appropriate mood and affect. ED Treatment Course - LABORATORY CBC & Chemistry Diagram: 06/10/18 21:32 06/10/18 21:32 *DC/Admit/Observation/Transfer Diagnosis at time of Disposition: Upper respiratory infection Qualifiers: URI type: unspecified viral URI Qualified Code(s): J06.9 - Acute upper respiratory infection, unspecified - Discharge Dispostion Disposition: HOME Condition at time of disposition: Stable Decision to Admit order: No - Prescriptions Prescriptions: Guaifenesin [Robitussin] 10 ml PO Q8H #200 ml Ibuprofen 800 mg PO TID #30 tablet Ondansetron [Zofran Odt -] 4 mg SL TID #10 od.tablet - Referrals Referrals: Kang Acevedo MD [Primary Care Provider] - - Patient Instructions Printed Discharge Instructions: DI for Viral Upper Respiratory Infection -- Adult Additional Instructions: You have an upper respiratory infection, or the common cold. Please take Motrin 800 mg every 8 hours as needed for pain not to exceed 3000 mg a day. Drink plenty of fluids. You may take Zofran 4mg every 8 hours as needed for nausea. Cough drops and warm tea may help your symptoms as well. Please follow up with her primary care doctor this week. Return to the emergency department if you have difficulty breathing, shortness of breath, worsening pain, nausea, vomiting or if you have any changes in your symptoms. - Post Discharge Activity Forms/Work/School Notes: Back to Work
[2018-06-10 21:06] LABS: HCG,QUALITATIVE URINE NEGATIVE
[2018-06-10 21:09] LABS: URINE APPEARANCE SLCLOUDY; URINE BILIRUBIN NEGATIVE (<2.0 mg/dL); URINE COLOR YELLOW; URINE GLUCOSE (UA) NEGATIVE (NEGATIVE); URINE KETONE NEGATIVE (NEGATIVE); URINE LEUK ESTERASE NEGATIVE (NEGATIVE); URINE NITRITE NEGATIVE (NEGATIVE); URINE PROTEIN NEGATIVE (NEGATIVE); URINE UROBILINOGEN NEGATIVE mg/dL (0.2-1.0)
[2018-06-10] MEDS ORDERED: ONDANSETRON 4 MG/2 ML VIAL ONE (21:33)
[2018-06-10 21:37] LABS: BASO % 1.3 % (0-2.0); EOS % 0.6 % (0-4.5); HEMATOCRIT 36.6 % (32.4-45.2); HEMOGLOBIN 11.5 GM/dL (10.7-15.3); LYMPH % 25.5 % (8-40); MCH 22.2 pg (25.7-33.7); MCHC 31.3 g/dl (32.0-36.0); MEAN CELL VOLUME 70.7 fl (80-96); MEAN PLT VOLUME 9.8 fl (7.5-11.1); MONO % 22.1 % (3.8-10.2); NEUT % 50.5 % (42.8-82.8); PLATELET COUNT 175 K/MM3 (134-434); RBC 5.18 M/mm3 (3.60-5.2); RDW 19.3 % (11.6-15.6); WHITE BLOOD COUNT 5.5 K/mm3 (4.0-10.0)
[2018-06-10 22:05] LABS: INR 1.2 (0.83-1.09); PROTHROMBIN TIME (PATIENT) 13.6 SEC (9.7-13.0)
[2018-06-10 22:07] LABS: ALBUMIN 3.8 g/dl (3.4-5.0); ANION GAP 8 MMOL/L (8-16); BILIRUBIN,TOTAL 0.5 mg/dL (0.2-1); BLOOD UREA NITROGEN 4 mg/dL (7-18); CALCIUM 9.5 mg/dL (8.5-10.1); CHLORIDE 106 mmol/L (98-107); CO2 29 mmol/L (21-32); CREATININE 0.8 mg/dL (0.55-1.3); GLUCOSE,RANDOM 79 mg/dL (74-106); SGOT/AST 10 U/L (15-37); SGPT/ALT 13 U/L (13-61); SODIUM 143 mmol/L (136-145); TOT PROT 7.8 g/dl (6.4-8.2)
[2018-06-10 22:08] LABS: ALK PHOS 85 U/L (45-117)
[2018-06-10 22:36] LABS: ANISOCYTOSIS 1+; MACROCYTOSIS 1+
[2018-06-10 22:37] LABS: PLATELET ESTIMATE ADEQUATE
[2018-06-10 23:59] VITALS: BP 110/76; PULSE 89; TEMP 98.5
== END 2018-06-11 00:45 | disposition home or self-care (01) ==
LOC: JER 20:11
PROC: 3E033GC Introduction of Other Therapeutic Substance into Peripheral Vein, Percutaneous Approach (ICD-10-PCS; principal; 2018-06-10)
PROC: 3E0337Z Introduction of Electrolytic and Water Balance Substance into Peripheral Vein, Percutaneous Approach (ICD-10-PCS; 2018-06-10)
DX: J06.9 Acute upper respiratory infection, unspecified (principal)
CPT/HCPCS: 36415; 80053; 81003; 83690; 84703; 85025; 85610; 96361; 96365; 96375; 99282-25; J7030

== ENCOUNTER 2019-01-13 13:30 | Emergency (ER) | payer OTHER ==
--- NOTE | 2019-01-13 13:52 | PDOC ---
Rapid Medical Evaluation Time Seen by Provider: 01/13/19 13:50 Medical Evaluation: Allergies Allergy/AdvReac Type Severity Reaction Status Date / Time No Known Allergies Allergy Verified 06/20/17 19:57 01/13/19 13:50 I have performed a brief in-person evaluation of this patient. The patient presents with a chief complaint of: weakness w/ dizziness, n/v, L ear pain, sore throat x 2 days. No pmhx Pertinent physical exam findings:stable and well felisa I have ordered the following:upreg The patient will proceed to the ED for further evaluation. Discharge Disposition - Diagnosis Malaise - Referrals - Patient Instructions - Post Discharge Activity
[2019-01-13 13:54] VITALS: BP 149/95; PULSE 83; TEMP 98.2; BMI 29.3
--- NOTE | 2019-01-13 15:05 | PDOC ---
History of Present Illness - General Chief Complaint: Sore Throat Stated Complaint: LIGHTHEADED W/SORE THROAT Time Seen by Provider: 01/13/19 13:50 History Source: Patient Exam Limitations: No Limitations - History of Present Illness Initial Comments: 01/13/19 15:00 Patient came for evaluation of worsening sore throat pain over the past few days. Is uncertain as to fever, but feels has a lot of posterior sinus drainage and pain in her back of her throat is worse in the morning upon rising. 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 Uncertain as to status Timing/Duration: reports: getting worse Severity: reports: mild, moderate Associated Symptoms: reports: nasal congestion, nasal drainage. denies: cough, earache, fever/chills Past History - Travel Traveled outside of the country in the last 30 days: No Close contact w/someone who was outside of country & ill: No - Past Medical History Allergies/Adverse Reactions: Allergies Allergy/AdvReac Type Severity Reaction Status Date / Time No Known Allergies Allergy Verified 01/13/19 15:00 Home Medications: Ambulatory Orders Cetirizine HCl [Zyrtec -] 10 mg PO DAILY #30 tablet 01/13/19 Asthma: No Cancer: No Cardiac Disorders: No COPD: No Diabetes: No HTN: No Seizures: No Thyroid Disease: No - Reproductive History (#): 1 - Immunization History Immunization Up to Date: Yes - Suicide/Smoking/Psychosocial Hx Smoking History: Never smoked Have you smoked in the past 12 months: No Hx Alcohol Use: No Drug/Substance Use Hx: No Substance Use Type: None Hx Substance Use Treatment: No Review of Systems - Review of Systems Able to Perform ROS?: Yes Is the patient limited Romanian proficient: Yes Constitutional: Yes: Symptoms Reported, See HPI, Malaise HEENTM: Yes: Symptoms Reported, See HPI, Nose Congestion, Throat Pain, Difficulty Swallowing. No: Throat Swelling Respiratory: Yes: Symptoms reported, See HPI. No: Cough *Physical Exam - Vital Signs Last Vital Signs Temp Pulse Resp BP Pulse Ox 98.2 F 83 17 149/95 100 01/13/19 13:51 01/13/19 13:51 01/13/19 13:51 01/13/19 13:51 01/13/19 13:51 - Physical Exam General Appearance: Yes: Nourished, Appropriately Dressed, Apparent Distress HEENT: positive: STARLA, TMs Normal (congested but landmarks easily visualized), Pharynx Normal, Nasal Congestion (with some posterior sinus drainage noted,), Rhinorrhea, Sinus Tenderness. negative: Normal ENT Inspection, Pharyngeal Erythema, Tonsillar Exudate Neck: positive: Supple. negative: Tender, Lymphadenopathy (R), Lymphadenopathy (L) Respiratory/Chest: positive: Lungs Clear, Normal Breath Sounds Gastrointestinal/Abdominal: positive: Soft. negative: Tender Integumentary: positive: Normal Color Neurologic: positive: caustic preparer II-XII NML intact, Fully Oriented, Alert, Normal Mood/ Affect, Normal Response, Motor Strength 5/5 Moderate Sedation - Post Procedure Assessment Tolerated procedure well: No Was a reversal agent used?: No Progress Note - Progress Note Progress Note: Postnasal drainage causing sore throat pain. Will treat for ALLERGIC rhinitis *DC/Admit/Observation/Transfer Diagnosis at time of Disposition: Malaise Allergic rhinitis Qualifiers: Allergic rhinitis trigger: unspecified Allergic rhinitis seasonality: seasonal Qualified Code(s): J30.2 - Other seasonal allergic rhinitis - Discharge Dispostion Disposition: HOME Condition at time of disposition: Stable Decision to Admit order: No - Prescriptions Prescriptions: Cetirizine HCl [Zyrtec -] 10 mg PO DAILY #30 tablet - Referrals Referrals: Kang Acevedo MD [Primary Care Provider] - - Patient Instructions Printed Discharge Instructions: DI for Allergic Rhinitis Additional Instructions: Rest, drink lots of fluids: Teas, water, soups Saltwater gargles. Consider humidifier in room at night Steamy showers/seem to face break up mucus Avoid contact with allergens, exposure to pollens, close windows on a windy day Lots of handwashing and good hygiene Continue nted-ynk-ghydmup medications for symptomatic relief- may use allergic eyedrops for itching I Continue antihistamines daily until pollen season is over; Zyrtec, Claritin, Sade during the daytime and Benadryl at nighttime as will make sleepy Tylenol or Motrin for fever and pain Followup with private physician in one to 2 days as needed Consider following up with an investigations consultant/senior environmental scientist for skin testing and possible allergy shots Return to emergency department for worsened symptoms, fevers, dehydration - Post Discharge Activity Forms/Work/School Notes: Back to Work
== END 2019-01-13 15:38 | disposition home or self-care (01) ==
LOC: JERFT 13:30
DX: J30.2 Other seasonal allergic rhinitis (principal); M53.81 Other specified dorsopathies, occipito-atlanto-axial region
CPT/HCPCS: 84703; 99281-25

== ENCOUNTER 2019-02-05 18:43 | Emergency (ER) | payer OTHER ==
--- NOTE | 2019-02-05 19:23 | PDOC ---
Rapid Medical Evaluation Time Seen by Provider: 02/05/19 19:22 Medical Evaluation: Allergies Allergy/AdvReac Type Severity Reaction Status Date / Time No Known Allergies Allergy Verified 01/13/19 15:00 02/05/19 19:22 HPI: Pelvic pain and vaginal bleeding PE: No gross deficits ORDERS: Labs urine preg Discharge Disposition - Diagnosis Vaginal bleeding - Referrals - Patient Instructions - Post Discharge Activity
[2019-02-05 19:25] VITALS: TEMP 99; BMI 29.0
--- NOTE | 2019-02-05 19:44 | PDOC ---
*Physical Exam - Vital Signs Last Vital Signs Temp Pulse Resp BP Pulse Ox 99.0 F 71 18 114/63 100 02/05/19 19:22 02/05/19 19:22 02/05/19 19:22 02/05/19 19:22 02/05/19 19:22 Medical Decision Making - Medical Decision Making 02/05/19 19:43 Patient seen by the advanced practice provider under my direct supervision. Ancillary testing reviewed as necessary. I agree with plan as outlined by the advanced practice provider. *DC/Admit/Observation/Transfer Diagnosis at time of Disposition: Vaginal bleeding - Referrals Referrals: Maurice Acevedo MD [Primary Care Provider] - - Patient Instructions - Post Discharge Activity
[2019-02-05] MEDS ORDERED: ACETAMINOPHEN 500 MG TABLET (FP) PO ONE (19:45)
--- NOTE | 2019-02-05 19:56 | PDOC ---
History of Present Illness - General Chief Complaint: Vaginal Bleeding Stated Complaint: PELVIC PAIN/CLOTS FROM VAGINA Time Seen by Provider: 02/05/19 19:22 History Source: Patient, Old Records Exam Limitations: No Limitations - History of Present Illness Travel History: No Initial Comments: 02/05/19 19:51 HISTORY OF PRESENT ILLNESS: 23-year-old woman denies medical history of presents emergency department for evaluation of sudden onset suprapubic cramping which started earlier today. Patient reports she is having some vaginal bleeding using approximately 2-3 pads per hour over the past 3 hours. Patient reports she is passing clots with the blood. Patient reports her last pressure proves at the end of December approximately 3 weeks ago. Patient denies any aggravating or alleviating factors. Patient has not taken any medications for the pain prior to arrival. Patient reports she is sexually active but has not had intercourse in the past 2-3 weeks. She denies rectal bleeding, dysuria, urinary frequency. No recent travel or sick contacts. PAST MEDICAL HISTORY: Denies past medical history SURGICAL HISTORY: Denies ALLERGIES: No known drug allergies REVIEW OF SYSTEMS General/Constitutional: Denies fever or chills. Denies weakness, weight change. HEENT: Denies change in vision. Denies ear pain or discharge. Denies sore throat. Cardiovascular: Denies chest pain or shortness of breath. Respiratory: Denies cough, wheezing, or hemoptysis. Gastrointestinal: see HPI Genitourinary: Denies dysuria, frequency, or change in urination. Musculoskeletal: Denies joint or muscle swelling or pain. Denies neck or back pain. Skin and breasts: Denies rash or easy bruising. Neurologic: Denies headache, vertigo, loss of consciousness, or loss of sensation. Psychiatric: Denies depression or anxiety. Endocrine: Denies increased thirst. Denies abnormal weight change. Hematologic/Lymphatic: Denies anemia, easy bleeding, or history of blood clots. Allergic/Immunologic: Denies hives or skin allergy. Denies latex allergy. PHYSICAL EXAM General Appearance: Well-appearing, appropriately dressed. No apparent distress , no intoxication. Respiratory/Chest: Lungs CTAB. No shortness of breath, chest tenderness, respiratory distress, accessory muscle use. No crackles, rales, rhonchi, stridor , wheezing, dullness Cardiovascular: RRR. S1, S2. No JVD, murmur, bradycardia, tachycardia. Vascular Pulses: Dorsalis-Pedis (R): 2+, Dorsalis-Pedis (L): 2+ Gastrointestinal/Abdominal: Normal bowel sounds. Abdomen soft, non-distended. suprapubic tenderness. No rebound tenderness. No organomegaly, pulsatile mass, guarding, hernia, hepatomegaly, splenomegaly. Lymphatic: No adenopathy, tenderness. Musculoskeletal/Extremities: Normal inspection. FROM of all extremities, normal capillary refill. Pelvis Stable. No CVA tenderness. No tenderness to extremities, pedal edema, swelling, erythema or deformity. 02/05/19 19:54 Past History - Past Medical History Allergies/Adverse Reactions: Allergies Allergy/AdvReac Type Severity Reaction Status Date / Time No Known Allergies Allergy Verified 02/05/19 19:25 Home Medications: Ambulatory Orders NK [No Known Home Medication] 02/05/19 Asthma: No Cancer: No Cardiac Disorders: No COPD: No Diabetes: No HTN: No Seizures: No Thyroid Disease: No - Reproductive History (#): 1 - Immunization History Immunization Up to Date: Yes - Suicide/Smoking/Psychosocial Hx Smoking History: Never smoked Have you smoked in the past 12 months: No Information on smoking cessation initiated: No Hx Alcohol Use: No Drug/Substance Use Hx: No Substance Use Type: None Hx Substance Use Treatment: No *Physical Exam - Vital Signs Last Vital Signs Temp Pulse Resp BP Pulse Ox 99.0 F 71 18 114/63 100 02/05/19 19:22 02/05/19 19:22 02/05/19 19:22 02/05/19 19:22 02/05/19 19:22 - Physical Exam Comments:: 02/05/19 23:16 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 Female Pelvic Exam: positive: normal external exam, cervical os closed, normal adnexa, normal size ovaries, vaginal bleeding (no pooling of blood present.), other (No lacerations or signs of trauma present.). negative: CMT, discharge ED Treatment Course - LABORATORY CBC & Chemistry Diagram: 02/05/19 19:50 02/05/19 19:50 Medical Decision Making - Medical Decision Making 02/05/19 19:55 A/P: 23-year-old woman with sudden onset severe suprapubic cramping Suprapubic tenderness noted Abdomen soft nondistended No CVA tenderness Differential diagnosis includes but not limited to ectopic , early , ovarian torsion, ovarian cysts, PID, UTI, pyelonephritis, kidney stone Labs Urine and GC Tylenol Reassess 02/05/19 23:16 Laboratory testing reveals a hemoglobin 10.2 with hematocrit 33.7. Coagulation profile is within normal limits. CMP is unremarkable. Urinalysis is notable for 1+ protein, 3+ blood and 1+ leuk esterase. 3900 RBCs on high-power field. Ultrasound as read by Dr. Garcia: Localized fluid accumulation with internal debris/clotted blood is seen within the endometrial canal at the level of the fundus. Endometrial thickness is 0.5 cm. The ovaries appear unremarkable. No Doppler evidence of ovarian torsion, sensitivity 70%. We'll discharge the patient home to follow-up with her vacuum cleaner assembler for reevaluation. I discussed the physical exam findings, ancillary test results and final diagnoses with the patient. I answered all of the patient's questions. The patient was satisfied with the care received and felt comfortable with the discharge plan and treatment plan. The patient will call their primary care physician within 24 hours to arrange follow-up and will return to the Emergency Department with any new, persistent or worsening symptoms. *DC/Admit/Observation/Transfer Diagnosis at time of Disposition: Menometrorrhagia - Discharge Dispostion Disposition: HOME Condition at time of disposition: Fair Decision to Admit order: No - Referrals Referrals: Maurice Acevedo MD [Primary Care Provider] - - Patient Instructions Additional Instructions: If symptoms continue, make an appointment for evaluation by your vacuum cleaner assembler. Take Tylenol or Motrin as needed for pain. Return to emergency department immediately after saturating 2 pads or more per hour. - Post Discharge Activity
[2019-02-05] MEDS ORDERED: ACETAMINOPHEN INJECTION 100 ML IVPB ONE (20:02)
[2019-02-05] MEDS ORDERED: ACETAMINOPHEN 1000 MG/100 ML VIAL (NON FORMULARY) IVPB ONE (20:03)
[2019-02-05] MEDS ORDERED: SODIUM CHLORIDE 1,000 ML IV STA (20:03)
[2019-02-05] MEDS ORDERED: morphine CARPU-JECT 2 MG/1 ML DISP.SYRIN IVPUSH ONE (20:12)
[2019-02-05 20:14] LABS: BASO % 1.1 % (0-2.0); HEMATOCRIT 33.7 % (32.4-45.2); HEMOGLOBIN 10.2 GM/dL (10.7-15.3); LYMPH % 23.9 % (8-40); MCH 21.6 pg (25.7-33.7); MCHC 30.3 g/dl (32.0-36.0); MEAN CELL VOLUME 71.4 fl (80-96); MEAN PLT VOLUME 10.7 fl (7.5-11.1); MONO % 14.7 % (3.8-10.2); NEUT % 58.3 % (42.8-82.8); PLATELET COUNT 216 K/MM3 (134-434); RBC 4.71 M/mm3 (3.60-5.2); RDW 18.7 % (11.6-15.6); WHITE BLOOD COUNT 9.1 K/mm3 (4.0-10.0)
[2019-02-05 20:17] LABS: PH,URINE 5.5 (5.0-8.0); URINE APPEARANCE CLOUDY; URINE BACTERIA 2.5 /hpf (NEGATIVE); URINE BILIRUBIN NEGATIVE (NEGATIVE); URINE CASTS 2 /lpf (0-8); URINE COLOR RED; URINE GLUCOSE (UA) NEGATIVE (NEGATIVE); URINE KETONE NEGATIVE (NEGATIVE); URINE LEUK ESTERASE 1+ (NEGATIVE); URINE NITRITE NEGATIVE (NEGATIVE); URINE PROTEIN 1+ (NEGATIVE); URINE RBC 3972 /hpf (0-4); URINE WBC 9 /hpf (0-5)
[2019-02-05 20:24] LABS: HCG,QUALITATIVE URINE Negative
[2019-02-05] MEDS ORDERED: MORPHINE SULFATE 2 MG/ML VIAL ONE (20:25)
[2019-02-05 20:26] LABS: INR 1.05 (0.83-1.09); PROTHROMBIN TIME (PATIENT) 12.4 SEC (9.7-13.0)
[2019-02-05 20:46] LABS: ALBUMIN 3.8 g/dl (3.4-5.0); BILIRUBIN,TOTAL 0.2 mg/dL (0.2-1); CALCIUM 9.5 mg/dL (8.5-10.1); CREATININE 0.9 mg/dL (0.55-1.3); POTASSIUM 3.8 mmol/L (3.5-5.1); TOT PROT 7.6 g/dl (6.4-8.2)
[2019-02-05] MEDS ORDERED: KETOROLAC TROMETHAMINE 30 MG/1 ML VIAL IVPUSH ONE (23:18)
[2019-02-05] MEDS ORDERED: KETOROLAC TROMETHAMINE 30 MG/1 ML VIAL ONE (23:21)
[2019-02-05 23:25] VITALS: BP 135/78; PULSE 79
== END 2019-02-05 23:25 | disposition home or self-care (01) ==
LOC: JER 18:43
PROC: 3E033NZ Introduction of Analgesics, Hypnotics, Sedatives into Peripheral Vein, Percutaneous Approach (ICD-10-PCS; principal; 2019-02-05)
PROC: 3E0333Z Introduction of Anti-inflammatory into Peripheral Vein, Percutaneous Approach (ICD-10-PCS; 2019-02-05)
PROC: 3E0337Z Introduction of Electrolytic and Water Balance Substance into Peripheral Vein, Percutaneous Approach (ICD-10-PCS; 2019-02-05)
DX: N92.1 Excessive and frequent menstruation with irregular cycle (principal)
CPT/HCPCS: 36415; 76830-TC; 80053; 81003; 84703; 85025; 85610; 86850; 86900; 86901; 87086; 99283-25; J0131; J7030

== ENCOUNTER 2020-05-22 00:25 | Emergency (ER) | payer OTHER ==
[2020-05-22 00:39] VITALS: BP 125/66; PULSE 79; TEMP 98.9; BMI 30.7
--- NOTE | 2020-05-22 00:57 | PDOC ---
History of Present Illness - General Chief Complaint: Pain, Acute Stated Complaint: ABD PAIN,VAGINAL BLEEDING, Time Seen by Provider: 05/22/20 00:51 - History of Present Illness Initial Comments: 05/22/20 02:08 25 y/o F approx 8 wks (estimated LMP). presents to the ED with lower abdominal cramping pain and vaginal bleeding. Patient denies DUMAS, vision change, palpitations, cough, wheezing, orthopena, PND, leg swelling/pain, N/V, F,C, CP, SOB, urinary complaints, hematuria, BPR, abdominal pain, diarrhea, constipation, lightheadedness, weakness, sensory changes. PMHx: as noted above ROS: as noted SHx: Denies Etoh, IVDA, tobacco use Allergies: NKDA ROS: GENERAL/CONSTITUTIONAL: No fever or chills. No weakness. HEAD, EYES, EARS, NOSE AND THROAT: No change in vision. No ear pain or discharge. No sore throat. CARDIOVASCULAR: No chest pain or shortness of breath RESPIRATORY: No cough, wheezing, or hemoptysis. GASTROINTESTINAL: No nausea, vomiting, diarrhea or constipation. GENITOURINARY: No dysuria, frequency, or change in urination. MUSCULOSKELETAL: No joint or muscle swelling or pain. No neck or back pain. SKIN: No rash NEUROLOGIC: No headache, vertigo, loss of consciousness, or change in s trength/sensation. ENDOCRINE: No increased thirst. No abnormal weight change HEMATOLOGIC/LYMPHATIC: No anemia, easy bleeding, or history of blood clots. ALLERGIC/IMMUNOLOGIC: No hives or skin allergy. PE: GENERAL: Awake, alert, and fully oriented, in no acute distress HEAD: No signs of trauma, normocephalic, atraumatic EYES: PERRLA, EOMI, sclera anicteric, conjunctiva clear ENT: Auricles normal inspection, hearing grossly normal, nares patent, oropharynx clear without exudates. Moist mucosa NECK: Normal ROM, supple, no lymphadenopathy, JVD, or masses LUNGS: No distress, speaks full sentences, clear to auscultation bilaterally HEART: Regular rate and rhythm, normal S1 and S2, no murmurs, rubs or gallops, peripheral pulses normal and equal bilaterally. ABDOMEN: Soft, nontender, normoactive bowel sounds. No guarding, no rebound. No masses : right adnexal tendernes. no CMT, closed cervical os. no blood in vagina vault. EXTREMITIES : Normal inspection, Normal range of motion, no edema. No clubbing or cyanosis NEUROLOGICAL: Cranial nerves II through XII grossly intact. Normal speech, normal gait, no focal sensorimotor deficits SKIN: Warm, Dry, normal turgor, no rashes or lesions noted 05/22/20 02:19 05/22/20 02:20 Past History - Medical History Allergies/Adverse Reactions: Allergies Allergy/AdvReac Type Severity Reaction Status Date / Time No Known Allergies Allergy Verified 05/22/20 00:37 Home Medications: Ambulatory Orders NK [No Known Home Medication] 02/05/19 Asthma: No Cancer: No Cardiac Disorders: No COPD: No Diabetes: No HTN: No Seizures: No Thyroid Disease: No - Reproductive History Is Patient Now?: Yes (#): 1 - Immunization History Immunization Up to Date: Yes - Psycho-Social/Smoking History Smoking History: Current some day smoker Have you smoked in the past 12 months: Yes Number of Cigarettes Smoked Daily: 3 Information on smoking cessation initiated: No - Substance Abuse Hx (Audit-C & DAST Scrn) How often the patient has a drink containing alcohol: Never Score: In Men: 4 or > Positive; In Women: 3 or > Positive: 0 Screen Result (Pos requires Nsg. Audit-10AR): Negative In the last yr the pt used illegal drug/Rx for NonMed reason: No Score: Yes response is considered Positive: 0 Screen Result (Positive result requires Nsg. DAST-10): Negative *Physical Exam - Vital Signs Last Vital Signs Temp Pulse Resp BP Pulse Ox 98.9 F 79 20 125/66 99 05/22/20 00:37 05/22/20 00:37 05/22/20 00:37 05/22/20 00:37 05/22/20 00:37 ED Treatment Course - LABORATORY CBC & Chemistry Diagram: 05/22/20 01:25 05/22/20 01:25 Medical Decision Making - Medical Decision Making 05/22/20 02:21 labs TVUS 05/22/20 02:28 TVUS The uterus measures 10.9 x 6.5 x 7.7 cm. A single live intrauterine is seen to be present in the lower uterine segment corresponding to 7 weeks 0 days gestation . A yolk sac is seen. Estimated due date is 01/08/2021 . heart rate measures 140.7 beats per minute. Right ovary measures 2.3 x 1.1 x 1.4 cm and the left ovary measures 3.4 x 2.3 x 2 cm. There is a 2.2 x 1.8 x 2.2 cm cyst within the left ovary 05/22/20 03:20 hcg quant within rage for gestational age pt well appearing, in no acute distress at this time. Discharge - Discharge Information Problems reviewed: Yes Clinical Impression/Diagnosis: Vaginal bleeding in Condition: Stable Disposition: HOME - Follow up/Referral Referrals: Kang Acevedo MD [Primary Care Provider] - Mildred Hobbs MD [Staff Physician] - - Patient Discharge Instructions Patient Printed Discharge Instructions: DI for Vaginal Bleeding During Additional Instructions: You should return to the hospital if you continue to have persistent and heavy vaginal bleeding, persistent pelvic pain not relieved by your prescribed medications, dizziness, shortness of breath, new and persistent fevers, other foul smelling discolored vaginal discharge, or for any other concerns Follow up with you BRIMMER BLOCKER in the next few days. - Post Discharge Activity
--- NOTE | 2020-05-22 01:28 | PDOC ---
Attending Attestation - Resident Resident Name: Krysten Reynoso - HPI HPI: 06/05/20 12:01 Pt presents to the ED complaining of vaginal bleeding and pelvic cramping. Spoke to her OB, who told her that she was probably having a miscarriage. Currently pain free. 06/05/20 12:08 - Physicial Exam PE: 06/05/20 12:09 Agree with resident exam. Abdomen is soft, non tender, non distended, without guarding or rebound. - Medical Decision Making 06/05/20 12:09 Pt presents to the ED complaining of pelvic pain and vaginal bleeding. Differential included threatened ab, spontaneous ab, incomplete ab and ectopic. US shows IUP with FH. Minimal bleeding on exam and currently pain free. Will discharge home with instructions to follow up with OB and return to the ED for worsening symptoms. Discharge - Discharge Information Problems reviewed: Yes Clinical Impression/Diagnosis: Vaginal bleeding in Condition: Stable Disposition: HOME - Follow up/Referral Referrals: Mildred Hobbs MD [Staff Physician] - Kang Acevedo MD [Primary Care Provider] - - Patient Discharge Instructions Patient Printed Discharge Instructions: DI for Vaginal Bleeding During Additional Instructions: You should return to the hospital if you continue to have persistent and heavy vaginal bleeding, persistent pelvic pain not relieved by your prescribed medications, dizziness, shortness of breath, new and persistent fevers, other foul smelling discolored vaginal discharge, or for any other concerns Follow up with you STEEL BOX TOE INSERTER in the next few days. - Post Discharge Activity
[2020-05-22 01:49] LABS: URINE APPEARANCE CLEAR; URINE BILIRUBIN NEGATIVE (NEGATIVE); URINE COLOR YELLOW; URINE GLUCOSE (UA) NEGATIVE (NEGATIVE); URINE KETONE NEGATIVE (NEGATIVE); URINE LEUK ESTERASE NEGATIVE (NEGATIVE); URINE NITRITE NEGATIVE (NEGATIVE); URINE PROTEIN NEGATIVE (NEGATIVE)
[2020-05-22 02:08] LABS: BASO % 0.9 % (0-2.0); EOS % 2.6 % (0-4.5); HEMATOCRIT 34.1 % (32.4-45.2); HEMOGLOBIN 10.7 GM/dL (10.7-15.3); LYMPH % 26.7 % (8-40); MCH 21.7 pg (25.7-33.7); MCHC 31.3 g/dl (32.0-36.0); MEAN CELL VOLUME 69.2 fl (80-96); MEAN PLT VOLUME 11.5 fl (7.5-11.1); MONO % 13.9 % (3.8-10.2); NEUT % 55.9 % (42.8-82.8); PLATELET COUNT 176 K/MM3 (134-434); RBC 4.93 M/mm3 (3.60-5.2); RDW 19.3 % (11.6-15.6); WHITE BLOOD COUNT 8.1 K/mm3 (4.0-10.0)
[2020-05-22 02:17] LABS: INR 0.94 (0.83-1.09); PROTHROMBIN TIME (PATIENT) 11.1 SEC (9.7-13.0)
[2020-05-22 02:41] LABS: ALBUMIN 3.7 g/dl (3.4-5.0); BILIRUBIN,TOTAL 0.3 mg/dL (0.2-1); BLOOD UREA NITROGEN 12.3 mg/dL (7-18); CALCIUM 9.4 mg/dL (8.5-10.1); CREATININE 0.7 mg/dL (0.55-1.3); POTASSIUM 4.5 mmol/L (3.5-5.1); TOT PROT 7.5 g/dl (6.4-8.2)
== END 2020-05-22 04:00 | disposition home or self-care (01) ==
LOC: JER 00:25
DX: O20.8 Other hemorrhage in early pregnancy (principal); Z3A.01 Less than 8 weeks gestation of pregnancy
CPT/HCPCS: 36415; 76801-TC; 80053; 81003; 84702; 85025; 85610; 86850; 86900; 86901; 87086; 99284-25

== ENCOUNTER 2022-08-22 19:40 | Emergency (ER) | payer OTHER ==
[2022-08-22 19:55] VITALS: BP 130/70; PULSE 88; RESP 18; TEMP 98; BMI 39.9
[2022-08-22] MEDS ORDERED: KETOROLAC TROMETHAMINE 30 MG/1 ML VIAL IM ONE (21:13)
[2022-08-22] MEDS ORDERED: KETOROLAC TROMETHAMINE 30 MG/1 ML VIAL ONE (21:16)
== END 2022-08-22 21:26 | disposition home or self-care (01) ==
LOC: JERFT 19:40
PROC: 3E023GC Introduction of Other Therapeutic Substance into Muscle, Percutaneous Approach (ICD-10-PCS; principal; 2022-08-22)
DX: M25.562 Pain in left knee (principal)
CPT/HCPCS: 73562-TC-LT-FY; 99284-25